=== PATIENT | female | born 1960 | race Caucasian/White ===

== ENCOUNTER 2016-06-26 19:38 | Emergency (ER) | payer OTHER ==
[~2016-06-26] VITALS: Ht 152.4 cm; Wt 81.0 kg
[2016-06-26] MEDS ORDERED: METF850T2 PO (19:49)
[2016-06-26] MEDS ORDERED: RISP1 PO (19:49)
[2016-06-26] MEDS ORDERED: LURA40 PO (19:49)
[2016-06-26 19:56] LABS: GLUCOSE,POINT OF CARE 107 MG/DL (70-110)
[2016-06-26 20:35] LABS: APPEARANCE,URINE CLOUDY (CLEAR); GLUCOSE, URINE (UA) NEGATIVE (NEGATIVE); KETONES,URINE NEGATIVE (NEGATIVE); LEUKOCYTE ESTERASE ,URINE LARGE (NEGATIVE); OCCULT BLOOD,URINE LARGE (NEGATIVE); PROTEIN,URINE POS 1+ (NEGATIVE)
[2016-06-26 20:41] VITALS: BP 118/81
[2016-06-26 20:55] LABS: SQUAMOUS EPITHELIAL CELL,UR Moderate /LPF (None Seen); WBC,URINE >100 /HPF (0-5)
[2016-06-26] MEDS ORDERED: PHENAZOPYRIDINE HCL 100 MG TABLET PO ONE (21:00)
[2016-06-26] MEDS ORDERED: CefTRIAXone SODIUM 1 GM/VIAL IM ONE (21:00)
[2016-06-26] MEDS ORDERED: LIDOCAINE HCL/PF 1% 2 ML VIAL IM ONE (21:00)
== END 2016-06-26 21:21 | disposition home or self-care (01) ==
LOC: EMS 19:41
DX: N39.0 Urinary tract infection, site not specified (principal); E11.9 Type 2 diabetes mellitus without complications; F20.9 Schizophrenia, unspecified; Z87.891 Personal history of nicotine dependence
CPT/HCPCS: 81001; 82962; 87077; 87086; 87186; 96372; 99284; J0696; J3490

== ENCOUNTER 2016-08-26 19:27 | Emergency (ER) | payer OTHER ==
[~2016-08-26] VITALS: Ht 152.4 cm; Wt 74.5 kg
[~2016-08-26 19:27] MED LIST: LURA40 PO; METF850T2 PO; RISP1 PO
[2016-08-26] MEDS ORDERED: TRAZ150 PO (19:33)
[2016-08-26] MEDS ORDERED: CHOL200016 PO (19:33)
[2016-08-26] MEDS ORDERED: OS500 PO (19:33)
[2016-08-26] MEDS ORDERED: FLUO-191 PO (19:33)
[2016-08-26] MEDS ORDERED: LURA40 PO (19:33)
[2016-08-26 19:41] LABS: GLUCOSE,POINT OF CARE 108 MG/DL (70-110)
[2016-08-26 20:40] LABS: APPEARANCE,URINE CLOUDY (CLEAR); GLUCOSE, URINE (UA) NEGATIVE (NEGATIVE); KETONES,URINE NEGATIVE (NEGATIVE); LEUKOCYTE ESTERASE ,URINE LARGE (NEGATIVE); PROTEIN,URINE NEGATIVE (NEGATIVE)
[2016-08-26 20:50] LABS: OCCULT BLOOD,URINE MODERATE (NEGATIVE); SQUAMOUS EPITHELIAL CELL,UR Moderate /LPF (None Seen); WBC,URINE 51-100 /HPF (0-5)
[2016-08-26] MEDS ORDERED: LIDOCAINE HCL/PF 1% 2 ML VIAL IM ONE (21:30)
[2016-08-26] MEDS ORDERED: CefTRIAXone SODIUM 1 GM/VIAL IM ONE (21:30)
[2016-08-26 22:05] VITALS: BP 128/69
== END 2016-08-26 22:41 | disposition home or self-care (01) ==
LOC: EMS 19:27
DX: N39.0 Urinary tract infection, site not specified (principal); R03.0 Elevated blood-pressure reading, without diagnosis of hypertension; E11.9 Type 2 diabetes mellitus without complications; Z87.891 Personal history of nicotine dependence
CPT/HCPCS: 81001; 82962; 87077; 87086; 96372; 99284; J0696; J3490

== ENCOUNTER 2017-02-18 09:00 | Emergency (ER) | payer OTHER ==
[~2017-02-18] VITALS: Ht 152.4 cm; Wt 68.2 kg
[~2017-02-18 09:00] MED LIST changes: +CHOL200016 PO; +FLUO-191 PO; +OS500 PO; -RISP1 PO; +TRAZ150 PO
[2017-02-18 09:18] LABS: GLUCOSE,POINT OF CARE 97 MG/DL (70-110)
[2017-02-18] MEDS ORDERED: KETOROLAC TROMETHAMINE 60 MG/2 ML VIAL IM ONE (09:30)
[2017-02-18 09:31] VITALS: BP 141/94
== END 2017-02-18 10:00 | disposition home or self-care (01) ==
LOC: EMS 09:01
DX: R51 Headache (principal); R03.0 Elevated blood-pressure reading, without diagnosis of hypertension; E11.9 Type 2 diabetes mellitus without complications; F20.9 Schizophrenia, unspecified; Z82.49 Family history of ischemic heart disease and other diseases of the circulatory system; Z87.891 Personal history of nicotine dependence; Z79.899 Other long term (current) drug therapy
CPT/HCPCS: 82962; 96372; 99283; J1885

== ENCOUNTER 2017-08-04 15:13 | Emergency (ER) | payer OTHER ==
[~2017-08-04] VITALS: Ht 152.4 cm; Wt 64.0 kg
[~2017-08-04 15:13] MED LIST changes: +ACET-784 PO; -CHOL200016 PO; +CIP250 PO; -METF850T2 PO; -OS500 PO
[2017-08-04] MEDS ORDERED: 0.9% SODIUM CHLORIDE 10 ML SYRINGE IVP PRN (15:45)
[2017-08-04] MEDS ORDERED: SODIUM CHLORIDE 0.9% 1,000 ML IV ONE ×3 (15:45→18:30)
[2017-08-04] MEDS ORDERED: CefTRIAXone SODIUM 1 GM in DEXTROSE 5%-WATER 10 ML IV ONE (16:00)
[2017-08-04] MEDS ORDERED: ACETAMINOPHEN 1000 MG/ISO-OSM 100 ML IV ONE (16:00)
[2017-08-04 16:35] LABS: HEMATOCRIT 34.5 % (36-46); HEMOGLOBIN 11.7 g/dL (12.0-16.0); MEAN CORPUSCULAR HEMOGLOBIN 28.9 pg (26.0-34.0); MEAN CORPUSCULAR HGB CONC 33.9 G/dL (31.0-37.0); MEAN CORPUSCULAR VOLUME 86 fL (80-100); PLATELET COUNT (AUTO) 222 K/uL (150-450); RED BLOOD CELL COUNT(AUTO) 4.03 MIL/uL (4.00-5.20); RED CELL DISTRIBUTION WIDTH 14.3 % (11.5-14.5)
[2017-08-04 16:46] LABS: PROTHROMBIN TIME 10.6 SEC (9.4-11.6)
[2017-08-04 16:53] LABS: ANION GAP 7 mmol/L (8-16); CALCIUM, TOTAL 8.8 mg/dL (8.8-10.5); CARBON DIOXIDE 28 mmol/L (22-29); CHLORIDE 103 mmol/L (98-107); CREATININE 1.05 mg/dL (0.60-1.30); GLOMERULAR FILTR. RATE CALC 54 mL/min (>60); GLUCOSE,RANDOM 135 mg/dL (70-110); POTASSIUM 3.7 mmol/L (3.5-5.1); SODIUM SERUM 138 mmol/L (136-145); UREA NITROGEN, BLOOD 24 mg/dL (7-18)
[2017-08-04 16:56] LABS: APPEARANCE,URINE CLOUDY (CLEAR); BILIRUBIN,URINE NEGATIVE (NEGATIVE); GLUCOSE, URINE (UA) NEGATIVE (NEGATIVE); KETONES,URINE NEGATIVE (NEGATIVE); LEUKOCYTE ESTERASE ,URINE SMALL (NEGATIVE); NITRATE,URINE NEGATIVE (NEGATIVE); OCCULT BLOOD,URINE LARGE (NEGATIVE); PH,URINE 6.5 (5.0-8.0); PROTEIN,URINE SEE CONFIRM (NEGATIVE); UROBILINOGEN,URINE 0.2 mg/dL (<=1.0)
[2017-08-04 16:57] LABS: B-TYPE NATRIURETIC PEPTIDE 34 pg/mL (0-100)
[2017-08-04 16:59] LABS: ALANINE AMINOTRANSFERASE 23 U/L (12-78); ALBUMIN 3.4 g/dL (3.4-5.0); ALKALINE PHOSPHATASE 112 U/L (46-116); ASPARTATE AMINOTRANSFERASE 16 U/L (15-37); BILIRUBIN,TOTAL 0.3 mg/dL (0.1-1.0); CREATINE KINASE, TOTAL 57 U/L (26-192); TOTAL PROTEIN, SERUM 7.4 g/dL (6.4-8.2)
[2017-08-04 17:05] LABS: LACTIC ACID 2.6 mmol/L (0.4-2.0)
[2017-08-04 17:09] LABS: BAND NEUTROPHILS % (MANUAL) 23 % (0-5); LYMPHOCYTES % (MANUAL) 4 % (22-44); MONOCYTES % (MANUAL) 1 % (2-9); SEGMENTED NEUTROPHILS % 72 % (40-70); WBC MORPHOLOGY TOXIC VACUOLATION
[2017-08-04 17:13] LABS: BACTERIA,URINE None Seen /HPF (None Seen); RBC,URINE >100 /HPF (0-2); SQUAMOUS EPITHELIAL CELL,UR Few /LPF (None Seen); SULFOSALICYLIC ACID,URINE 3+ (Negative)
[2017-08-04] MEDS ORDERED: IOVERSOL 350 MG/ML 100 ML VIAL ONE (17:34)
[2017-08-04] MEDS ORDERED: SODIUM CHLORIDE 0.9% 100 ML ONE (17:35)
[2017-08-04] MEDS ORDERED: IBUPROFEN 800 MG TABLET PO ONE (18:30)
[2017-08-04] MEDS ORDERED: VANCOMYCIN HCL 1 GM/D5% WATER 200 ML IV ONE (19:30)
[2017-08-04 21:28] VITALS: BP 118/67
== END 2017-08-04 22:45 | disposition short-term general hospital (02) ==
LOC: EMS 16:10
DX: A41.9 Sepsis, unspecified organism (principal); J43.9 Emphysema, unspecified; N12 Tubulo-interstitial nephritis, not specified as acute or chronic; R74.0 Nonspecific elevation of levels of transaminase and lactic acid dehydrogenase [LDH]; E11.9 Type 2 diabetes mellitus without complications
CPT/HCPCS: 71045; 74177; 80053; 81001; 82550; 83605; 83880; 84484; 85025; 85610; 85730; 87040; 93005; 96365; 96366; 96367; 96368; 99291; J0131; J0696; J3370; J7030; J7050; J7060; Q9967

== ENCOUNTER 2019-09-26 22:05 | Emergency (ER) | payer OTHER ==
[~2019-09-26] VITALS: Ht 149.9 cm; Wt 65.9 kg
[~2019-09-26 22:05] MED LIST changes: -CIP250 PO; -LURA40 PO; +LURA40TA2 PO
[2019-09-27 01:14] VITALS: BP 128/75
== END 2019-09-27 01:16 | disposition home or self-care (01) ==
LOC: EMS 22:05
DX: G44.009 Cluster headache syndrome, unspecified, not intractable (principal); F32.9 Major depressive disorder, single episode, unspecified; E11.9 Type 2 diabetes mellitus without complications; F20.9 Schizophrenia, unspecified
CPT/HCPCS: 70450

== ENCOUNTER 2020-01-03 12:55 | Emergency (ER) | payer OTHER ==
[~2020-01-03] VITALS: Ht 152.4 cm; Wt 63.6 kg
[2020-01-03] MEDS ORDERED: IBUPROFEN 600 MG TABLET PO ONE (14:45)
[2020-01-03 15:15] VITALS: BP 115/63
== END 2020-01-03 15:23 | disposition home or self-care (01) ==
LOC: EMS 12:55
DX: S63.502A Unspecified sprain of left wrist, initial encounter (principal); F32.9 Major depressive disorder, single episode, unspecified; E11.9 Type 2 diabetes mellitus without complications; F20.9 Schizophrenia, unspecified; Z79.84 Long term (current) use of oral hypoglycemic drugs; W06.XXXA Fall from bed, initial encounter; Y93.89 Activity, other specified; Y92.89 Other specified places as the place of occurrence of the external cause; Y99.8 Other external cause status

== ENCOUNTER 2021-09-11 12:20 | Emergency (ER) | payer MEDICAID, OTHER ==
[~2021-09-11] VITALS: Ht 152.4 cm; Wt 79.1 kg
[~2021-09-11 12:20] MED LIST changes: +FLUO-177 PO; -FLUO-191 PO; -TRAZ150 PO; +TRAZ150T80 PO
[2021-09-11] MEDS ORDERED: KETOROLAC TROMETHAMINE 60 MG/2 ML VIAL IM ONE (14:45)
[2021-09-11 15:47] VITALS: BP 143/79
== END 2021-09-11 16:04 | disposition home or self-care (01) ==
LOC: EMS 12:20
DX: M17.0 Bilateral primary osteoarthritis of knee (principal); F20.9 Schizophrenia, unspecified; F32.9 Major depressive disorder, single episode, unspecified; E11.9 Type 2 diabetes mellitus without complications; Z79.899 Other long term (current) drug therapy
CPT/HCPCS: 96372; 99283; J1885

== ENCOUNTER 2021-12-05 16:10 | Emergency (ER) | payer MEDICAID ==
[~2021-12-05] VITALS: Ht 152.4 cm; Wt 78.6 kg
[2021-12-05] MEDS ORDERED: ACETAMINOPHEN 500 MG TABLET PO ONE (17:00)
[2021-12-05] MEDS ORDERED: KETOROLAC TROMETHAMINE 60 MG/2 ML VIAL IM ONE (17:00)
[2021-12-05] MEDS ORDERED: IBUP-1554 PO (17:06)
[2021-12-05] MEDS ORDERED: ACET-66 PO (17:06)
[2021-12-05] MEDS ORDERED: LURA60TA PO (17:13)
[2021-12-05 17:23] VITALS: BP 135/74
== END 2021-12-05 17:40 | disposition home or self-care (01) ==
LOC: EMS 16:14
DX: M17.0 Bilateral primary osteoarthritis of knee (principal); M25.562 Pain in left knee; M25.561 Pain in right knee; F32.9 Major depressive disorder, single episode, unspecified; F20.9 Schizophrenia, unspecified; Z87.441 Personal history of nephrotic syndrome
CPT/HCPCS: 99283; 96372; J1885